=== PATIENT | male | born 1990 | race Caucasian/White ===

== ENCOUNTER 2020-01-17 02:36 | Emergency (ER) | payer SELFPAY ==
[~2020-01-17] VITALS: Ht 172.7 cm; Wt 70.5 kg
[2020-01-17 02:50] VITALS: TEMP 98.4
[2020-01-17] MEDS ORDERED: LEXAPRO 5MG5 MG (03:15)
[2020-01-17] MEDS ORDERED: ATIVAN 0.50.5 MG/TAB PO (03:16)
[2020-01-17 04:05] VITALS: BP 141/96; PULSE 121
== END 2020-01-17 04:05 | disposition home or self-care (01) ==
LOC: COL.ER 02:36
DX: S80.11XA Contusion of right lower leg, initial encounter (principal); S00.83XA Contusion of other part of head, initial encounter; Z23 Encounter for immunization; V48.5XXA Car driver injured in noncollision transport accident in traffic accident, initial encounter

== ENCOUNTER 2021-02-13 09:40 | Emergency (ER) | payer SELFPAY ==
[~2021-02-13] VITALS: Ht 170.2 cm; Wt 70.5 kg
[~2021-02-13 09:40] MED LIST: ATIVAN 0.50.5 MG/TAB PO; LEXAPRO 5MG5 MG
[2021-02-13 09:47] VITALS: TEMP 98.9
[2021-02-13] MEDS ORDERED: ROXICODONE 55 MG/TAB PO (10:53)
[2021-02-13 11:36] VITALS: BP 127/78; PULSE 80
== END 2021-02-13 11:40 | disposition home or self-care (01) ==
LOC: COL.ER 09:40
DX: S43.102A Unspecified dislocation of left acromioclavicular joint, initial encounter (principal); V00.831A Fall from motorized mobility scooter, initial encounter; Y93.I9 Activity, other involving external motion
CPT/HCPCS: J3010